=== PATIENT | female | born 1935 | race Caucasian/White ===

== ENCOUNTER 2020-03-25 08:00 | Outpatient (CLI) | payer MEDICARE, BC ==
[~2020-03-25] VITALS: Ht 167.6 cm; Wt 56.4 kg
[2020-03-25] MEDS ORDERED: HYDROCHLOROTH12.5 MG PO (11:22)
[2020-03-25] MEDS ORDERED: PRAV40TA2 PO (11:22)
[2020-03-25] MEDS ORDERED: TRAZ50TA66 PO (11:22)
[2020-03-25] MEDS ORDERED: METF-754 PO (11:22)
[2020-03-25] MEDS ORDERED: ALPR0.25 PO (11:22)
[2020-03-25] MEDS ORDERED: ENAL10TA9 PO (11:22)
[2020-03-25 12:11] LABS: BASOPHILS % (AUTO) 1 % (0-1); EOSINOPHILS % (AUTO) 1 % (1-7); LYMPHOCYTES % (AUTO) 23 % (22-44); MEAN CORPUSCULAR HEMOGLOBIN 30.7 pg (27.0-34.8); MEAN CORPUSCULAR HGB CONC 33.5 g/dL (32.4-35.8); MEAN PLATELET VOLUME 10.5 fL (7.4-10.4); MONOCYTES % (AUTO) 7 % (2-9); NEUTROPHILS % (AUTO) 68 % (42-75); PLATELET COUNT 126 x10^3/uL (130-400); RED CELL DISTRIBUTION WIDTH 14.5 % (9.6-15.2)
[2020-03-25 12:21] LABS: ALANINE AMINOTRANSFERASE 17 U/L (12-78); ALBUMIN 3.6 g/dL (3.4-5.0); ANION GAP 4 mmol/L (5-15); CALCIUM 8.9 mg/dL (8.5-10.1); CHLORIDE 107 mmol/L (98-107); INTERNATIONAL NORMALIZED RATIO 0.98 (0.93-1.1); PROTHROMBIN TIME 10.4 Seconds (9.6-11.5)
[2020-03-25 12:24] LABS: ALKALINE PHOSPHATASE 48 U/L (45-117); BILIRUBIN,TOTAL 0.7 mg/dL (0.2-1.0); CREATININE 0.88 mg/dL (0.55-1.02); TOTAL PROTEIN 6.8 g/dL (6.4-8.2)
[2020-03-25 12:40] LABS: MD SCAN
== END 2020-03-25 23:59 | disposition home or self-care (01) ==
LOC: STAR 08:00 → EDSTATUS 03-28 09:00
PROVIDERS: ATTEND Surgery
DX: U07.1 COVID-19 (principal); Z01.818 Encounter for other preprocedural examination; C43.52 Malignant melanoma of skin of breast; I49.1 Atrial premature depolarization
CPT/HCPCS: 36415; 80053; 85025; 85610; 93005; U0003

== ENCOUNTER 2020-04-25 05:58 | Day surgery (SDC) | payer MEDICARE, BC ==
[~2020-04-25] VITALS: Ht 170.2 cm; Wt 56.0 kg
[~2020-04-25 05:58] MED LIST: ALPR0.25 PO; ENAL10TA9 PO; HYDROCHLOROTH12.5 MG PO; METF-754 PO; PRAV40TA2 PO; TRAZ50TA66 PO
[2020-04-25] MEDS ORDERED: BUPIVACAINE/PF 0.5% ONE (06:21)
[2020-04-25] MEDS ORDERED: EPINEPHRINE 1 MG/ML, 1ML ONE (06:21)
[2020-04-25] MEDS ORDERED: METHYLENE BLUE 50 MG/10 ML AMP ONE (06:21)
[2020-04-25 06:36] VITALS: BP 174/88
[2020-04-25 06:38] VITALS: BP 174/88
[2020-04-25] MEDS ORDERED: CHLORHEXIDINE 15 ML UDC MM ONE (07:00)
[2020-04-25] MEDS ORDERED: LACTATED RINGERS 1,000 ML IV SCH (07:00)
[2020-04-25] MEDS ORDERED: FENTANYL PF 250 MCG/5ML ONE (07:03)
[2020-04-25] MEDS ORDERED: MIDAZOLAM 1 MG/ML, 2ML ONE (07:03)
[2020-04-25] MEDS ORDERED: LIDOCAINE-MPF 2% ,5ML ONE (07:05)
[2020-04-25] MEDS ORDERED: CEFAZOLIN 1,000 MG ONE ×2 (07:05)
[2020-04-25] MEDS ORDERED: PROPOFOL 10 MG/ML, 20ML ONE (07:05)
[2020-04-25] MEDS ORDERED: ONDANSETRON 2MG/ML, 2ML ONE (07:06)
[2020-04-25] MEDS ORDERED: EPHEDRINE 50 MG/ML, 1ML ONE (07:25)
[2020-04-25] MEDS ORDERED: OXYcodone 5 MG/5 ML ORAL.SOL UDC PO PRN (07:30)
[2020-04-25] MEDS ORDERED: HYDROmorphone 1 MG/ML, 1ML INJ IVPush PRN (07:30)
[2020-04-25] MEDS ORDERED: ONDANSETRON 2MG/ML, 2ML IVPush PRN (07:30)
[2020-04-25] MEDS ORDERED: FENTANYL PF 100 MCG/2ML IV PRN (07:30)
[2020-04-25] MEDS ORDERED: ACETAMINOPHEN 325 MG TABLET PO PRN (07:30)
[2020-04-25] MEDS ORDERED: HYDR-1067 PO (08:22)
== END 2020-04-25 10:30 | disposition home or self-care (01) ==
LOC: OUT 05:58
PROVIDERS: ATTEND Surgery
DX: C43.52 Malignant melanoma of skin of breast (principal); I10 Essential (primary) hypertension; E78.5 Hyperlipidemia, unspecified; E11.9 Type 2 diabetes mellitus without complications; Z88.0 Allergy status to penicillin; Z98.890 Other specified postprocedural states; Z79.899 Other long term (current) drug therapy; Z79.84 Long term (current) use of oral hypoglycemic drugs; Z87.891 Personal history of nicotine dependence
CPT/HCPCS: 11606; 82962; 88305; J0171; J0690; J2250; J2405; J2704; J3010; J7120; Q9968